=== PATIENT | female | born 1965 | race Asian ===

== ENCOUNTER → 2017-04-21 | Outpatient (RCR) | payer BC | LOC: PT 10:17 | PROVIDERS: ATTEND Specialist | DX: M75.41 Impingement syndrome of right shoulder (principal); M25.511 Pain in right shoulder; M25.611 Stiffness of right shoulder, not elsewhere classified; M62.81 Muscle weakness (generalized) ==

== ENCOUNTER 2017-04-29 10:55 | Outpatient (RCR) | payer BC | END 2017-05-19 | LOC: PT 10:55 | PROVIDERS: ATTEND Specialist | DX: M75.41 Impingement syndrome of right shoulder (principal); M25.511 Pain in right shoulder; M25.611 Stiffness of right shoulder, not elsewhere classified; M62.81 Muscle weakness (generalized) ==